=== PATIENT | female | born 1945 | race Caucasian/White ===

== ENCOUNTER 2018-09-20 10:15 | Outpatient (CLI) | payer OTHER ==
[2018-09-20 10:33] LABS: BASOPHILS % 0.8 % (0.0-1.5); NEUTROPHILS # 3.2 # k/uL (1.4-7.7)
[2018-09-20 10:55] LABS: eGFR (Non-African) > 60
== END 2018-09-20 10:17 ==
LOC: LAB 10:15
PROVIDERS: ATTEND Family Medicine
DX: I10 Essential (primary) hypertension (principal)
CPT/HCPCS: 36415; 80053; 85025

== ENCOUNTER 2018-10-30 10:36 | Outpatient (CLI) | payer OTHER ==
[2018-10-30 10:47] LABS: BASOPHILS % 0.8 % (0.0-1.5); NEUTROPHILS # 2.9 # k/uL (1.4-7.7)
[2018-10-30 11:09] LABS: eGFR (Non-African) > 60
== END 2018-10-30 10:38 ==
LOC: LAB 10:36
PROVIDERS: ATTEND Family Medicine
DX: R94.5 Abnormal results of liver function studies (principal)
CPT/HCPCS: 36415; 80053; 85025

== ENCOUNTER 2018-11-27 09:41 | Outpatient (CLI) | payer OTHER ==
[2018-11-27 10:29] LABS: eGFR (Non-African) > 60
== END 2018-11-27 09:43 ==
LOC: LAB 09:41
PROVIDERS: ATTEND Family Medicine
DX: R94.5 Abnormal results of liver function studies (principal); E83.52 Hypercalcemia
CPT/HCPCS: 36415; 80053